=== PATIENT | female | born 1955 | race Caucasian/White ===

== ENCOUNTER → 2017-12-24 | Outpatient (CLI) | payer OTHER ==
[~2017-12-24] MED LIST: ALAVERT10 MG PO; CARDIZEM CD240 MG PO; EFFEXOR; FLONASE 0.05%50 MCG NASAL; IBUPROFEN 800800 MG PO; LEVOTHROID50 MCG PO; LEVOXYL; MECLIZINE HCL25 M1 PO; OMEPRAZOLE; PREDNISONE 10 M10 M1 PO; XANAX 0.5 MG0.5 M1 PO; XANAX 0.5 MG0.5 MG; [UNRECOGNIZED DRUG - REMARK]
== END ==
LOC: M.RAD 07:00
DX: Z12.31 Encounter for screening mammogram for malignant neoplasm of breast (principal)

== ENCOUNTER → 2019-02-16 | Outpatient (CLI) | payer OTHER | LOC: M.RAD 09:26 | DX: Z12.31 Encounter for screening mammogram for malignant neoplasm of breast (principal) ==

== ENCOUNTER → 2020-02-24 | Outpatient (CLI) | payer MEDICARE | LOC: M.RAD 09:20 | PROVIDERS: ATTEND Internal Medicine | DX: Z12.31 Encounter for screening mammogram for malignant neoplasm of breast (principal) ==

== ENCOUNTER → 2021-08-17 | Outpatient (CLI) | payer BC | LOC: M.RAD 09:54 | PROVIDERS: ATTEND Internal Medicine | DX: Z12.31 Encounter for screening mammogram for malignant neoplasm of breast (principal) ==